=== PATIENT | female | born 1985 | race Caucasian/White ===

== ENCOUNTER 2019-06-28 14:53 | Emergency (ER) | payer MEDICARE ==
[~2019-06-28] VITALS: Ht 160 cm; Wt 99.8 kg
[2019-06-28 15:19] VITALS: Ht 160 cm; Wt 99.8 kg
[2019-06-28] MEDS ORDERED: NEURONTIN600 MG PO (15:22)
[2019-06-28] MEDS ORDERED: KEFLEX500 MG PO (15:22)
[2019-06-28] MEDS ORDERED: EFFEXOR75 MG PO (15:22)
[2019-06-28] MEDS ORDERED: HYDROCHLOROTH12.5 M1 PO (15:23)
[2019-06-28] MEDS ORDERED: LASIX IV (15:23)
[2019-06-28] MEDS ORDERED: VIBRAMYCIN 100100 MG PO (15:44)
[2019-06-28] MEDS ORDERED: VOLTAREN75 MG PO (15:44)
[2019-06-28 16:45] VITALS: BP 120/76
== END 2019-06-28 16:46 | disposition home or self-care (01) ==
LOC: D.ER 14:53
DX: L03.115 Cellulitis of right lower limb (principal); Z48.00 Encounter for change or removal of nonsurgical wound dressing